=== PATIENT | male | born 1985 ===

== ENCOUNTER 2023-07-14 21:37 | Outpatient (REF) | payer OTHER, SELFPAY ==
[2023-07-16 10:30] LABS: HIV-1/2 Ag & Ab Screen Negative (Negative)
[2023-07-16 11:15] LABS: Syphilis Serology (RPR) Negative (Negative)
[2023-07-16 11:32] LABS: Hepatitis C Ab w Rflx HCV PCR Negative (Negative)
[2023-07-16 13:13] LABS: Chlamydia Result Negative (Negative); GC Result Negative (Negative)
== END 2023-07-14 21:38 | disposition home or self-care (01) ==
LOC: LBN 21:37
PROVIDERS: Visit Provider Nurse Practitioner Family
DX: Z11.3 Encounter for screening for infections with a predominantly sexual mode of transmission (principal); Z11.4 Encounter for screening for human immunodeficiency virus [HIV]; Z11.59 Encounter for screening for other viral diseases
CPT/HCPCS: 86803; 87389; 87491; 87591; 86592